=== PATIENT | male | born 1940 | race Caucasian/White ===

== ENCOUNTER → 2021-05-27 11:41 | Outpatient (CLI) | payer MEDICARE, SELFPAY ==
[2021-05-27 12:20] LABS: Add Manual Diff / Slide Review NO; Basophils Absolute Auto 100 /uL (0-100); Basophils Percent Auto 1.3 % (0-2); Eosinophils Absolute Auto 300 /uL (0-450); Eosinophils Percent Auto 4.9 % (2-4); Hematocrit 42.1 % (41-53); Hemoglobin 14.5 g/dL (13.5-17.5); Lymphocytes Absolute Auto 1800 /uL (1100-4500); Lymphocytes Percent Auto 30.2 % (25-40); Mean Corpuscular HGB Conc 34.6 % (30-36); Mean Corpuscular Hemoglobin 33.8 PG (26-34); Mean Corpuscular Volume 97.6 fL (80-100); Monocytes Absolute Auto 600 /uL (0-900); Monocytes Percent Auto 9.4 % (3-14); Neutrophils Absolute Auto 3300 /uL (1500-7000); Neutrophils Percent Auto 54.2 % (50-75); Platelet Count 234 X10^3/uL (150-400); Red Blood Cell Count 4.31 X10^6/uL (4.5-5.9); Red Cell Distribution Width 13.2 % (11.6-14.8); White Blood Cell Count 6.1 X10^3/uL (4.5-11.0)
[2021-05-27 12:42] LABS: Appearance Urine UA CLEAR; Bilirubin Urine UA NEGATIVE (NEGATIVE); Color Urine UA YELLOW; Glucose Urine UA NEGATIVE (Negative); Ketones Urine UA NEGATIVE (NEGATIVE); Leukocyte Esterase Urine UA NEGATIVE (NEGATIVE); Nitrite Urine UA NEGATIVE (Negative); Occult Blood Urine UA NEGATIVE (Negative); Protein Urine UA NEGATIVE (Negative); Specific Gravity Urine UA 1.025 (1.000-1.035); Urobilinogen Urine UA 0.2 E.U./dL (0.2)
[2021-05-27 13:02] LABS: BUN Creatinine Ratio 18.3 (6-22); Blood Urea Nitrogen 19 mg/dL (9-20); Calcium 9.6 mg/dL (8.4-10.2); Carbon Dioxide 25 mmol/L (22-32); Chloride 107 mmol/L (98-107); Estimated Glomerular Filt Rate > 60.0 mL/min (>60); Glucose 95 mg/dL (80-110); HEMOLYSIS 47 (0-50); Potassium 5.2 mmol/L (3.4-5.1); Sodium 139 mmol/L (137-145)
[2021-05-27 13:04] LABS: Bacteria Urine None Seen; Culture Indicated Urine Cult Not Indicated; RBC Urine None Seen (0-5/HPF); Squamous Epithelial Cell Urine 0-1 /HPF (0-5/HPF); WBC Urine 0-1/HPF (0-5/HPF)
[2021-05-27 13:07] LABS: Hemoglobin A1C% w Est Avg Glu 5.3 % (4.0-6.0)
== END ==
PROVIDERS: PCP Family Medicine; Referring Provider Orthopaedic Surgery; Visit Provider Orthopaedic Surgery
DX: Z01.818 Encounter for other preprocedural examination (principal); R73.9 Hyperglycemia, unspecified; Z01.812 Encounter for preprocedural laboratory examination; N39.0 Urinary tract infection, site not specified
CPT/HCPCS: 36415; 80048; 81001; 83036; 85025; 93005; 93010

== ENCOUNTER → 2021-07-28 10:21 | Outpatient (CLI) | payer MEDICARE, SELFPAY ==
[2021-07-28 13:02] LABS: BUN Creatinine Ratio 23.5 (6-22); Blood Urea Nitrogen 23 mg/dL (9-20); Calcium 9.5 mg/dL (8.4-10.2); Carbon Dioxide 27 mmol/L (22-32); Chloride 104 mmol/L (98-107); Estimated Glomerular Filt Rate > 60.0 mL/min (>60); Glucose 95 mg/dL (80-110); HEMOLYSIS < 15 (0-50); Potassium 4.9 mmol/L (3.4-5.1); Sodium 137 mmol/L (137-145)
== END ==
PROVIDERS: PCP Family Medicine; Referring Provider Orthopaedic Surgery; Visit Provider Orthopaedic Surgery
DX: Z01.812 Encounter for preprocedural laboratory examination (principal)
CPT/HCPCS: 36415; 80048

== ENCOUNTER → 2022-02-04 09:36 | Outpatient (CLI) | payer MEDICARE, SELFPAY ==
[2022-02-04 10:17] LABS: Add Manual Diff / Slide Review NO; Basophils Absolute Auto 100 /uL (0-100); Basophils Percent Auto 1.1 % (0-2); Eosinophils Absolute Auto 300 /uL (0-450); Eosinophils Percent Auto 6.1 % (2-4); Hematocrit 41.1 % (41-53); Hemoglobin 14.2 g/dL (13.5-17.5); Lymphocytes Absolute Auto 1400 /uL (1100-4500); Mean Corpuscular HGB Conc 34.6 % (30-36); Mean Corpuscular Volume 95.3 fL (80-100); Monocytes Absolute Auto 600 /uL (0-900); Monocytes Percent Auto 11.3 % (3-14); Neutrophils Absolute Auto 2800 /uL (1500-7000); Neutrophils Percent Auto 54.5 % (50-75); Platelet Count 237 X10^3/uL (150-400); Red Blood Cell Count 4.31 X10^6/uL (4.5-5.9); Red Cell Distribution Width 13.6 % (11.6-14.8); White Blood Cell Count 5.2 X10^3/uL (4.5-11.0)
[2022-02-04 10:24] LABS: Hemoglobin A1C% w Est Avg Glu 5.5 % (4.0-6.0)
[2022-02-04 10:51] LABS: BUN Creatinine Ratio 24.5 (6-22); Blood Urea Nitrogen 26 mg/dL (9-20); Calcium 9.2 mg/dL (8.4-10.2); Carbon Dioxide 25 mmol/L (22-32); Chloride 104 mmol/L (98-107); Estimated Glomerular Filt Rate > 60 mL/min (>60); Glucose 99 mg/dL (80-110); HEMOLYSIS < 15 (0-50); Potassium 4.6 mmol/L (3.4-5.1); Sodium 139 mmol/L (137-145)
[2022-02-04 11:47] LABS: Appearance Urine UA CLEAR; Bilirubin Urine UA NEGATIVE (NEGATIVE); Color Urine UA YELLOW; Glucose Urine UA NEGATIVE (Negative); Ketones Urine UA NEGATIVE (NEGATIVE); Leukocyte Esterase Urine UA NEGATIVE (NEGATIVE); Nitrite Urine UA NEGATIVE (Negative); Occult Blood Urine UA NEGATIVE (Negative); Protein Urine UA NEGATIVE (Negative); Urobilinogen Urine UA 0.2 E.U./dL (0.2)
[2022-02-04 11:51] LABS: Bacteria Urine None Seen; RBC Urine None Seen (0-5/HPF); WBC Urine None Seen (0-5/HPF)
[2022-02-04 11:52] LABS: Culture Indicated Urine Cult Not Indicated; Urine Comments Microscopic Normal
== END ==
PROVIDERS: PCP Family Medicine; Referring Provider Orthopaedic Surgery; Visit Provider Orthopaedic Surgery
DX: Z01.818 Encounter for other preprocedural examination (principal); R73.9 Hyperglycemia, unspecified; Z01.812 Encounter for preprocedural laboratory examination; N39.0 Urinary tract infection, site not specified
CPT/HCPCS: 36415; 80048; 81001; 83036; 85025; 93005; 93010

== ENCOUNTER → 2022-02-19 07:44 | Outpatient (CLI) | payer MEDICARE, SELFPAY ==
[2022-02-19 19:48] LABS: COVID19 - ORCAS (NP or Nasal) Negative (Negative)
== END ==
PROVIDERS: PCP Family Medicine; Visit Provider Family Medicine
DX: Z20.822 Contact with and (suspected) exposure to COVID-19 (principal); Z01.812 Encounter for preprocedural laboratory examination
CPT/HCPCS: C9803; U0003

== ENCOUNTER → 2025-03-28 12:34 | Outpatient (CLI) | payer MEDICARE, SELFPAY ==
--- NOTE | 2025-03-28 12:35 | DI.ECHO.S_ITS ---
[facility] : : [id number] : : [place] : : [id number] : : Phone: [phone] Echocardiogram Report + + :Name: NILS ZABALA Study Date: 03/28/2025 Height: 74 in : :[facility] ReadingLocation: Weight: 194 lb : : Gender: Male BSA: 2.1 m2 : :: 1940 Age: 84 yrs BP: 125/80 mmHg: :Reason For Study: Dyspnea : :Ordering Physician: GENA, : :THADDEUS Cabrera Performed By: Rg Bonner : :Referring: THADDEUS AVERY : + + Interpretation Summary The patient was in atrial fibrillation with controlled ventricular rate during the exam. The left ventricle is normal in size and wall thickness. Left ventricular ejection fraction is estimated to be 55 +/- 5%. Base of the RV appears to be dilated. RV function is preserved. The right atrium is severely dilated. There is mild to moderate mitral regurgitation. The tricuspid annulus is dilated. There is moderate tricuspid regurgitation. The right ventricular systolic pressure is estimated to be at least 28 mmHg based on an estimated right atrial pressure of 3 mm Hg. Procedure: A two-dimensional transthoracic echocardiogram with color flow and Doppler was performed. The study quality was technically adequate. There is no prior echocardiogram noted for this patient. The heart rate ranged between 60-77 bpm during the study. The patient was in atrial fibrillation with controlled ventricular rate during the exam. Left Ventricle: The left ventricle is normal in size and wall thickness. There is no thrombus. Overall left ventricular systolic function is preserved. Left ventricular ejection fraction is estimated to be 55 +/- 5%. There are no focal wall motion abnormalities. Diastolic function is indeterminate. Diastolic function could not be accurately assessed due to atrial fibrillation. Right Ventricle: Base of the RV appears to be dilated. RV function is preserved. Atria: Borderline left atrial enlargement. The left atrium is mildly dilated. The right atrium is severely dilated. There is no Doppler evidence for an interatrial shunt. Mitral Valve: There is mild mitral annular calcification. The mitral valve leaflets appear mildly thickened. There is no mitral valve stenosis. There is mild to moderate mitral regurgitation. The mitral regurgitant jet is eccentrically directed. Aortic Valve: The aortic valve is trileaflet. The aortic valve opens well. There is no aortic valve stenosis. There is trace aortic regurgitation. Tricuspid Valve: The tricuspid annulus is dilated. There is moderate tricuspid regurgitation. The right ventricular systolic pressure is estimated to be at least 28 mmHg based on an estimated right atrial pressure of 3 mm Hg. Pulmonic Valve: The pulmonic valve is not well seen, but is grossly normal. There is mild pulmonic regurgitation. Great Vessels: The aortic root is normal size. The ascending aorta is normal in size. The aortic arch could not be visualized. The pulmonary artery is normal size. The IVC is of normal diameter and collapses greater than 50% with a sniff. This suggests a low right atrial pressure of 3 mm Hg. Pericardium/ Pleura There is no pericardial effusion. There is an anterior echo-free space consistent with a fat pad. MMode/2D Measurements & Calculations LVIDd: 5.1 cm LVOT diam: 2.2 cm LVIDs: 3.5 cm Ao root diam: 3.5 cm FS: 32.4 % asc Aorta Diam: 3.2 cm IVSd: 1.0 cm LVPWd: 1.1 cm LV villar. diameter/BSA (cm/m^2): 2.4 LV sys. diameter/BSA (cm/m^2): 1.6 LA A2 area: 24.1 cm2 RA long axis: 5.7 cm LA A4 area: 21.5 cm2 RA area: 17.8 cm2 LA length (vol): 6.1 cm RA vol: 47.4 ml LA vol: 71.8 ml RA : 22.1 ml/m2 LA vol index: 33.5 ml/m2 IVC diam: 1.6 cm RVD1 (basal): 3.0 cm RVD2 (mid): 2.6 cm TAPSE: 2.6 cm Doppler Measurements & Calculations Ao V2 max: 131.4 cm/sec LVOT Max Sonido: 96.4 cm/sec Ao V2 mean: 88.3 cm/sec LV V1 max P.7 mmHg Ao max P.9 mmHg LV V1 VTI: 17.5 cm Ao mean P.6 mmHg BELLA(I,D): 2.6 cm2 Ao V2 VTI: 24.5 cm BELLA(V,D): 2.7 cm2 sev ratio: 0.71 BELLA indexed to BSA (cm^2/m^2): 1.2 MV E max sonido: 77.6 cm/sec TR max sonido: 250.1 cm/sec MV dec time: 0.20 sec TR max P.0 mmHg PA V2 max: 75.2 cm/sec PA V2 mean: 56.0 cm/sec PA mean P.4 mmHg PA pr(Accel): 37.9 mmHg SV(LVOT): 63.7 ml Qp/Qs (V,Ao): 1.0/5.3 Qp/Qs (V,LVOT): 1.0/1.5 Reading Physician:02:06 PM
== END ==
LOC: ECHO 12:35
PROVIDERS: PCP Family Medicine; Referring Provider Family Medicine; Visit Provider Family Medicine
DX: R06.09 Other forms of dyspnea (principal); I08.1 Rheumatic disorders of both mitral and tricuspid valves
CPT/HCPCS: 93306